=== PATIENT | female | born 2000 | race Caucasian/White ===

== ENCOUNTER 2020-07-17 18:09 | Emergency (ER) | payer OTHER ==
[2020-07-17] MEDS ORDERED: ACETAMINOPHEN 325 MG TABLET PO ONE (18:54)
[2020-07-17 19:35] LABS: APPEARANCE,URINE CLOUDY; BILIRUBIN,URINE NEGATIVE (NEGATIVE); COLOR,URINE YELLOW; GLUCOSE, URINE NEGATIVE (NEGATIVE); KETONES,URINE 20 mg/dL (NEGATIVE); PROTEIN,URINE 30 mg/dL (NEGATIVE); URINE SPECIFIC GRAVITY 1.024
[2020-07-17] MEDS ORDERED: CEFTRIAXONE 1 GM/D5W RTU 1 GM/50 ML RTUPB IV ONE (20:38)
[2020-07-17] MEDS ORDERED: NORMAL SALINE 1000 ML 1,000 ML IV ONE (20:39)
[2020-07-17] MEDS ORDERED: ONDANSETRON HCL INJ/PF 4 MG/2 ML SDV IV ONE (20:40)
--- NOTE | 2020-07-17 20:41 | ER Document Report ---
ED General - General Chief Complaint: Nausea Stated Complaint: FEVER/NAUSEA/DIAHERRA/COUGH/SORE THROAT/CHILLS/HEA Time Seen by Provider: 07/17/20 20:14 Notes: Patient is a 19-year-old female that comes emergency department for chief complaint of fever that started within the past day. Patient states she is felt "rundown" for the past 2 to 3 days but she started running a fever today. She has had a mild intermittent cough, she has had developing sore throat, and she had a headache earlier. She reports some lower back pain, mild lower abdominal pain, and painful urination. She reports some nausea but denies vomiting. She denies any obvious sick contacts. She states she was seen by primary care today and they tested her for COVID-19 but no additional tests were performed at that time. She denies any daily medications, surgeries, concerns for STD, or . - Related Data Allergies/Adverse Reactions: No Known Allergies Allergy (Unverified 07/17/20 18:41) Past Medical History - General Information source: Patient - Social History Smoking Status: Current Some Day Smoker Frequency of alcohol use: Occasional Drug Abuse: None Lives with: Family Family History: Reviewed & Not Pertinent - Immunizations Immunizations up to date: Yes Hx Diphtheria, Pertussis, Tetanus Vaccination: Yes Review of Systems - Review of Systems Constitutional: See HPI EENT: No symptoms reported Cardiovascular: No symptoms reported Respiratory: See HPI Gastrointestinal: See HPI Genitourinary: See HPI Female Genitourinary: No symptoms reported Musculoskeletal: No symptoms reported Skin: No symptoms reported Hematologic/Lymphatic: No symptoms reported Neurological/Psychological: No symptoms reported Physical Exam - Vital signs Vitals: Temp 102.5 F H 07/17/20 18:33 - Notes Notes: GENERAL: Alert, interacts well. No acute distress. HEAD: Normocephalic, atraumatic. EYES: Pupils equal, round, and reactive to light. Extraocular movements intact. ENT: Oral mucosa moist, tongue midline. Oropharynx unremarkable. Airway patent. Nares patent, sinuses non-tender, ear canals unremarkable, TM's intact. NECK: Full range of motion. Supple. Trachea midline. No lymphadenopathy. LUNGS: Clear to auscultation bilaterally, no wheezes, rales, or rhonchi. No respiratory distress. Non-tender chest wall. HEART: Borderline tachycardia, no murmur, normal rhythm ABDOMEN: Soft, non-tender. Non-distended. Bowel sounds present in all 4 quadrants. GENITOURINARY: Deferred EXTREMITIES: Moves all 4 extremities spontaneously. No edema, normal radial and dorsalis pedis pulses bilaterally. No cyanosis. BACK: no cervical, thoracic, lumbar midline tenderness. No saddle anesthesia, normal distal neurovascular exam. Moves all extremities in full range of motion. NEUROLOGICAL: Alert and oriented x3. Normal speech. Cranial nerves II through XII grossly intact. Strength 5/5 in all extremities. PSYCH: Normal affect, normal mood. SKIN: Warm, dry, normal turgor. No rashes or lesions noted. Course - Re-evaluation Re-evalutation: Patient noted to be initially febrile and tachycardic, however she is quite well-appearing, her abdomen is soft and benign, she is tolerating p.o. without difficulty, her lungs are clear, she has no nuchal rigidity. She does have erythema the posterior pharynx without evidence of peritonsillar abscess, this was swabbed and was positive for strep. Urine also suggest infection although this was contaminated with squamous epithelials. Patient does has dysuria. She was given initial Rocephin, cultures were placed for blood and urine. On reevaluation after fluids and interventions tachycardia resolved, fever resolved, patient sitting on the edge of the bed, states she feels great, requesting discharge. Patient has not been hypotensive, I do have a low suspicion of sepsis although we do have backup cultures pending. I discussed with patient treatment, she will be treated with cephalexin for dual coverage of strep and UTI. Chest x-ray unremarkable. Patient has already been tested by outpatient for COVID. Discussed details, follow-up, return precautions. Patient states appreciation and agreement. - Vital Signs Vital signs: Temp Pulse Resp BP Pulse Ox 97.9 F 80 16 108/69 98 07/17/20 22:53 07/17/20 22:53 07/17/20 22:53 07/17/20 22:53 07/17/20 22:53 - Laboratory Result Diagrams: 07/17/20 21:05 07/17/20 21:05 Laboratory results interpreted by me: 07/17/20 07/17/20 07/17/20 18:58 21:05 21:05 WBC 11.7 H MCH 26.9 L Lymph % (Auto) 7.7 L Absolute Neuts (auto) 9.8 H Seg Neutrophils % 83.7 H Sodium 136.4 L Urine Protein 30 H Urine Ketones 20 H Urine Urobilinogen 2.0 H Leukocyte Esterase Rfl LARGE H Urine Ascorbic Acid 40 H Discharge - Discharge Clinical Impression: Person under investigation for COVID-19, Dysuria, Strep throat, Cough Condition: Stable Disposition: HOME, SELF-CARE Additional Instructions: Your strep test is positive, please take the antibiotics as prescribed to completion. After you complete the antibiotics take the Diflucan to treat potential yeast infection. We have urine culture growing in the lab. It is also possible that you have an additional viral illness, you will be contacted from your COVID-19 testing with additional instructions if you are positive. See additional instructions for this below. You can take Tylenol and ibuprofen for fever, take Zofran if needed for nausea, drink plenty fluids and rest. Return if you worsen including uncontrolled vomiting, difficulty breathing, chest pain, or any other concerning or worsening symptoms. As a person under investigation for COVID-19, the [place] Department of Health and Human Services (division on public health) advises you to adhere to the following guidance until your test results are reported to you. If your test result is positive, you will receive additional information from your provider and your local health department at that time. Remain at home until you are cleared by the health provider or public health authorities. Keep a log of visitors to your home, notify any visitors to your home of your isolation status. If you plan to move to a new address or leave the [facility], notify the local health department in your County. Call your Doctor or seek care if you have an urgent medical need. Before seeking medical care, call him to get instructions from the provider before arriving at the medical office, clinic, or hospital. Notify them that you are being tested for the virus (COVID-19) so that arrangements can be made, as necessary, to prevent transmission to others in the healthcare setting. Next, notify the local health department in your county. If a medical emergency arises and you need to call 911, inform the first responders that you are being tested for the virus that causes COVID-19. Next, notify the local health department in your county. Prescriptions: Fluconazole [Diflucan] 150 mg PO ONCE PRN #3 tablet PRN Reason: Cephalexin Monohydrate [Keflex 500 mg Capsule] 500 mg PO BID 10 Days #20 capsule Ondansetron [Zofran Odt 4 mg Tablet] 1 - 2 tab PO Q4H PRN #15 tab.rapdis PRN Reason: For Nausea/Vomiting Forms: Return to Work
--- NOTE | 2020-07-17 21:24 | RADIOLOGY REPORT (SQ) ---
EXAM DESCRIPTION: XR CHEST 1 VIEW COMPLETED DATE/TME: 07/17/2020 20:38 CLINICAL HISTORY: 19 years Female fever, cough COMPARISON: None. FINDINGS: The cardiomediastinal silhouette appears unremarkable. No consolidating infiltrates or pleural effusions. No pneumothorax. IMPRESSION: No acute abnormality is identified.
[2020-07-17 21:29] LABS: ABSOLUTE LYMPHOCYTES (AUTO) 0.9 10^3/uL (0.5-4.7); ABSOLUTE NEUT (AUTO) 9.8 10^3/uL (1.7-8.2); BASOPHILS % (AUTO) 0.2 % (0-2); HEMATOCRIT 37.8 % (36.0-47.0); HEMOGLOBIN 12.3 g/dL (12.0-15.5); LYMPHOCYTES % (AUTO) 7.7 % (13-45); MEAN CORPUSCULAR HEMOGLOBIN 26.9 pg (27.0-33.4); MEAN CORPUSCULAR HGB CONC 32.6 g/dL (32.0-36.0); MEAN CORPUSCULAR VOLUME 83 fl (80-97); MONOCYTES % (AUTO) 8.4 % (3-13); PLATELET COUNT 309 10^3/uL (150-450); RED BLOOD COUNT 4.57 10^6/uL (3.72-5.28); RED CELL DISTRIBUTION WIDTH 13.9 % (11.5-14.0); SEGMENTED NEUTROPHILS % (AUTO) 83.7 % (42-78); TOTAL CELLS COUNTED % (AUTO) 100 %; WHITE BLOOD COUNT 11.7 10^3/uL (4.0-10.5)
[2020-07-17 21:39] LABS: ALBUMIN 4.6 g/dL (3.5-5.0); ALKALINE PHOSPHATASE 81 U/L (38-126); ANION GAP 9 (5-19); ASPARTATE AMINO TRANSFERASE 20 U/L (14-36); BILIRUBIN,TOTAL 0.6 mg/dL (0.2-1.3); BLOOD UREA NITROGEN 7 mg/dL (7-20); CALCIUM 9.6 mg/dL (8.4-10.2); CARBON DIOXIDE 25 mmol/L (22-30); CHLORIDE 102 mmol/L (98-107); GLUCOSE 103 mg/dL (75-110); POTASSIUM 3.6 mmol/L (3.6-5.0); TOTAL PROTEIN 7.6 g/dL (6.3-8.2)
[2020-07-17] MEDS ORDERED: FLUCONAZOLE 100 MG TABLET PO ONE (22:33)
[2020-07-17 22:53] VITALS: BP 108/69
== END 2020-07-17 22:53 | disposition home or self-care (01) ==
LOC: ER 18:09
DX: J02.0 Streptococcal pharyngitis (principal); R05 Cough; R30.0 Dysuria; R00.0 Tachycardia, unspecified; R11.0 Nausea; R50.9 Fever, unspecified; R19.7 Diarrhea, unspecified; R51 Headache; M54.5 Low back pain; R10.30 Lower abdominal pain, unspecified; Z20.828 Contact with and (suspected) exposure to other viral communicable diseases; F17.200 Nicotine dependence, unspecified, uncomplicated
CPT/HCPCS: 99281; 96375; 96365; 36415; 87040; 87086; 87880; 85025; 80053; 81001; 71045; J2405; J7030; J0696